=== PATIENT | male | born 1945 | race Caucasian/White ===

== ENCOUNTER 2019-08-12 13:45 | Inpatient (IN) | payer MEDICARE, OTHER ==
[~2019-08-12] VITALS: Ht 177.8 cm; Wt 86.3 kg
--- NOTE | 2019-08-12 13:57 | NUR ---
BREAK RN: THIS IS A 74 YEAR OLD MALE WHO CAME IN BY AMBUL[facility] FROM [facility] [place] [facility]. [facility]WELL[facility] BILATERAL FEET SWELLING. PT WAS FOUND TO HAVE A LARGE ABDOMINAL MASS LYMPHOMA. PT STATES HE HAS ALL OVER PAIN 7/10. PT PLACED ON CARDIAC MONTOR SINUS AT 62, CONTINOUS SP02 AND CYCLE VS.
--- NOTE | 2019-08-12 14:18 | NUR ---
LATE ENTRY FOR 1408 RECEIVED BEDSIDE REPORT FROM JOSELIN MERCADO. ALEKSEY. PT RESTING ON [facility]. NO NEEDS REQUESTED AT THIS TIME.
--- NOTE | 2019-08-12 15:10 | NUR ---
PT RESTING ON [facility]. IRENEN. NO NEEDS REQUESTED AT THIS TIME. VSS.
--- NOTE | 2019-08-12 16:00 | NUR ---
double end tenon operator: yovany black/ [facility] [place] who declined taking [facility] pt d/t [facility] hospital being full.
--- NOTE | 2019-08-12 16:34 | NUR ---
PT CONTINUES TO REST ON GURNEY. NADN. PASCALS. NO NEEDS REQUESTED AT THIS TIME. PT VERBALIZES UNDERSTANDING REGARDING POC.
--- NOTE | 2019-08-12 16:52 | NUR ---
REPORT TO JOSELIN DICK. ALL QUESTIONS ANSWERED.
--- NOTE | 2019-08-12 16:55 | NUR ---
PT AMBULATORY WITH STEADY GAIT TO BATHROOM.
[2019-08-12] MEDS ORDERED: ONDANSETRON 2MG/ML, 2ML IVPush PRN (17:00)
[2019-08-12] MEDS ORDERED: ONDANSETRON ODT 4 MG PO PRN (17:00)
[2019-08-12] MEDS ORDERED: OXYcodone IR 5MG TABLET PO PRN (17:00)
[2019-08-12] MEDS ORDERED: MORPHINE SULFATE 4 MG/ML, 1ML IVPush PRN (17:00)
[2019-08-12] MEDS ORDERED: hydrALAzine 20 MG/ML, 1ML IVPush PRN (17:00)
[2019-08-12] MEDS ORDERED: METHOCARBAMOL 500 MG TABLET PO PRN (17:00)
--- NOTE | 2019-08-12 17:08 | NUR ---
PT BEING TRANSFERRED TO FLOOR WITH PERSONAL BELONGINGS.
[2019-08-12 17:28] VITALS: BP 144/98
[2019-08-12] MEDS: HEPARIN 5,000 UNITS/ML, 1ML SQ SCH (18:19)
[2019-08-12 19:26] VITALS: BP 149/80
[2019-08-13] MEDS: HEPARIN 5,000 UNITS/ML, 1ML SQ SCH (01:00)
[2019-08-13 01:39] VITALS: BP 135/72
[2019-08-13 04:33] LABS: BASOPHILS # (AUTO) 0.02 x10^3/uL (0-0.1); BASOPHILS % (AUTO) 0 % (0-1); EOSINOPHILS # (AUTO) 0.29 x10^3/uL (0-0.4); EOSINOPHILS % (AUTO) 5 % (1-7); LYMPHOCYTES # (AUTO) 0.98 x10^3/uL (1-3.4); LYMPHOCYTES % (AUTO) 17 % (22-44); MD NO; MEAN CORPUSCULAR HEMOGLOBIN 30.2 pg (27.5-34.5); MEAN CORPUSCULAR HGB CONC 33.3 g/dL (33.2-36.2); MEAN CORPUSCULAR VOLUME 90.8 fL (81-97); MEAN PLATELET VOLUME 6.9 fL (7.4-10.4); MONOCYTES # (AUTO) 0.46 x10^3/uL (0.2-0.8); MONOCYTES % (AUTO) 8 % (2-9); NEUTROPHILS # (AUTO) 3.95 x10^3/uL (1.8-6.8); NEUTROPHILS % (AUTO) 69 % (42-75); PLATELET COUNT 254 x10^3/uL (130-400); RED BLOOD COUNT 4.07 x10^6/uL (4.38-5.82); RED CELL DISTRIBUTION WIDTH 13.7 % (9.4-14.8)
[2019-08-13 04:43] LABS: ALANINE AMINOTRANSFERASE 17 U/L (12-78); ALBUMIN 2.9 g/dL (3.4-5.0); ANION GAP 7 mmol/L (5-15); CALCIUM 8.7 mg/dL (8.5-10.1); CHLORIDE 107 mmol/L (98-107); CREATININE 1.01 mg/dL (0.7-1.3)
[2019-08-13 04:45] LABS: ALKALINE PHOSPHATASE 84 U/L (45-117); BILIRUBIN,TOTAL 0.7 mg/dL (0.2-1.0); TOTAL PROTEIN 6.3 g/dL (6.4-8.2)
[2019-08-13 07:21] VITALS: BP 137/85
[2019-08-13] MEDS ORDERED: NALOXONE 1 MG/ML, 2ML ONE (10:31)
[2019-08-13] MEDS ORDERED: FLUMAZENIL 0.1 MG/1 ML, 5ML ONE (10:31)
[2019-08-13] MEDS ORDERED: MIDAZOLAM 1 MG/ML, 5ML ONE ×2 (10:31)
[2019-08-13] MEDS ORDERED: FENTANYL PF 100 MCG/2ML ONE (10:31)
[2019-08-13 13:34] VITALS: BP 133/81
[2019-08-13] MEDS: ACETAMINOPHEN 325 MG TABLET PO PRN (15:56)
[2019-08-13 18:59] VITALS: BP 127/78
[2019-08-13] MEDS: ENOXAPARIN 40 MG/0.4 ML SQ SCH (19:37)
[2019-08-14 03:13] VITALS: BP 136/82
[2019-08-14 04:56] LABS: BASOPHILS # (AUTO) 0.03 x10^3/uL (0-0.1); BASOPHILS % (AUTO) 0 % (0-1); EOSINOPHILS # (AUTO) 0.32 x10^3/uL (0-0.4); EOSINOPHILS % (AUTO) 6 % (1-7); LYMPHOCYTES # (AUTO) 0.94 x10^3/uL (1-3.4); LYMPHOCYTES % (AUTO) 17 % (22-44); MD NO; MEAN CORPUSCULAR HEMOGLOBIN 30.4 pg (27.5-34.5); MEAN CORPUSCULAR HGB CONC 33.2 g/dL (33.2-36.2); MEAN CORPUSCULAR VOLUME 91.5 fL (81-97); MEAN PLATELET VOLUME 7.3 fL (7.4-10.4); MONOCYTES # (AUTO) 0.57 x10^3/uL (0.2-0.8); MONOCYTES % (AUTO) 10 % (2-9); NEUTROPHILS # (AUTO) 3.85 x10^3/uL (1.8-6.8); NEUTROPHILS % (AUTO) 68 % (42-75); PLATELET COUNT 237 x10^3/uL (130-400); RED BLOOD COUNT 3.95 x10^6/uL (4.38-5.82); RED CELL DISTRIBUTION WIDTH 13.4 % (9.4-14.8)
[2019-08-14 05:03] LABS: ANION GAP 4 mmol/L (5-15); CALCIUM 8.5 mg/dL (8.5-10.1); CHLORIDE 108 mmol/L (98-107)
[2019-08-14 05:06] LABS: CREATININE 1.03 mg/dL (0.7-1.3)
[2019-08-14 06:41] VITALS: BP 133/65
[2019-08-14] MEDS: ACETAMINOPHEN 325 MG TABLET PO PRN ×2 (08:24→19:43)
[2019-08-14 12:16] VITALS: BP 107/68
[2019-08-14 19:06] VITALS: BP 130/73
[2019-08-14] MEDS: ENOXAPARIN 40 MG/0.4 ML SQ SCH (21:06)
[2019-08-15 00:44] VITALS: BP 152/76
[2019-08-15] MEDS: ACETAMINOPHEN 325 MG TABLET PO PRN (03:44)
[2019-08-15 08:24] VITALS: BP 133/75
[2019-08-15] MEDS ORDERED: ACET325T26 PO (11:36)
[2019-08-15 13:05] VITALS: BP 121/73
== END 2019-08-15 14:40 | disposition home or self-care (01) | DRG 824 ==
LOC: ED 15:37 → EDIP 16:24 → 4NW 17:13 → DCLOUNGE 08-15 14:30
PROVIDERS: ADMIT Internal Medicine; ATTEND Family Medicine
PROC: 07BD3ZX Excision of Aortic Lymphatic, Percutaneous Approach, Diagnostic (ICD-10-PCS; principal; 2019-08-13)
DX: C83.33 Diffuse large B-cell lymphoma, intra-abdominal lymph nodes (principal); I87.1 Compression of vein; D64.9 Anemia, unspecified; I11.9 Hypertensive heart disease without heart failure; N50.89 Other specified disorders of the male genital organs; Z59.0 Homelessness; Z82.5 Family history of asthma and other chronic lower respiratory diseases
CPT/HCPCS: 36415; 49180; 71250; 77012; 80048; 80053; 83615; 85025; 86704; 86803; 87340; 87806; 88305; 88341; 88342; 88360; 93306; 93970; 99156; 99157; 99285; G0378; J1644; J1650; J2250; J3010; G0475; J2310